=== PATIENT | male | born 1990 | race African-American/Black ===

== ENCOUNTER 2020-06-08 10:48 | Emergency (ER) | payer SELFPAY ==
[2020-06-08 11:29] LABS: Bilirubin Negative (Negative); Blood, Urine 1+ (Negative); Clarity Turbid (Clear); Glucose, Urine (Dipstick) Normal (Negative); Ketone, Urine Negative (Negative); Leukocyte 500 Leu/uL (Negative); Nitrite Negative (Negative); Protein, Urine (Dipstick) 30 mg/dL (Neg-Trace); Specific Gravity, Urine 1.023 (1.002-1.036); Squamous Epithelial 0-3 HPF (0-3); Urobilinogen Normal mg/dL (Less than 2); WBC/HPF Greater than 50 HPF (0-3); pH, Urine 6.5 (5.0-9.0)
[2020-06-08 11:39] LABS: Bacteria/HPF 1+ HPF (None Seen)
[2020-06-08] MEDS ORDERED: Lidocaine 1% PF 5 ML VIAL ONE (12:14)
[2020-06-08] MEDS ORDERED: cefTRIAXone\\ROCEPHIN 500 MG VIAL ONE (12:14)
[2020-06-12 21:58] LABS: Chlam.trachomatis by PCR,Urine Not Detected (NotDetected)
== END 2020-06-08 12:41 | disposition home or self-care (01) ==
LOC: ERS 10:48
DX: N34.1 Nonspecific urethritis (principal); Z79.899 Other long term (current) drug therapy; B20 Human immunodeficiency virus [HIV] disease; F17.210 Nicotine dependence, cigarettes, uncomplicated
CPT/HCPCS: 81003; 81015; 87491; 87591; 96372; 99283; J0696

== ENCOUNTER 2021-11-22 10:48 | Emergency (ER) | payer SELFPAY ==
[2021-11-22] MEDS ORDERED: Lidocaine 1% w/Epinephrine 1:100K 20 ML VIAL ONE (12:25)
== END 2021-11-22 12:56 | disposition home or self-care (01) ==
LOC: ERS 10:48
DX: L02.31 Cutaneous abscess of buttock (principal); F17.210 Nicotine dependence, cigarettes, uncomplicated
CPT/HCPCS: 10060

== ENCOUNTER 2021-11-24 07:26 | Emergency (ER) | payer SELFPAY | END 2021-11-24 09:04 | disposition home or self-care (01) | LOC: ERS 07:26 | DX: Z48.817 Encounter for surgical aftercare following surgery on the skin and subcutaneous tissue (principal) | CPT/HCPCS: 99282 ==